=== PATIENT | female | born 1965 ===

== ENCOUNTER → 2023-10-15 11:04 | Outpatient (BNVA) | payer OTHER, SELFPAY | PROVIDERS: Visit Provider Physician Assistant ==

== ENCOUNTER 2023-11-07 15:09 | Emergency (ER) | payer OTHER, SELFPAY ==
--- NOTE | ~2023-11-07 | US_ITS ---
EXAMINATION: US ABDOMEN LIMITED CLINICAL INFORMATION: Right upper quadrant tenderness. COMPARISON: None available. TECHNIQUE: Real-time imaging of the right upper quadrant abdominal viscera. FINDINGS: GALLBLADDER: There are multiple echogenic shadowing gallstones with mild tenderness with ultrasound probe. Gallbladder wall thickness measures 0.27 cm. No pericholecystic fluid collection. COMMON BILE DUCT: Normal in caliber measuring 0.60 cm in diameter. US/US abdomen limited IMPRESSION: Cholelithiasis with borderline wall thickness and mild tenderness with ultrasound probe. Findings suspicious for cholecystitis
[2023-11-07 16:05] VITALS: BP 137/84; PULSE 70; RESP 16; O2SAT 98; BMI 59.5
--- NOTE | 2023-11-07 16:06 | ED.GENADULT ---
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 Patient states symptoms initially began 1 week ago. She thinks he may have been when she had been moving some of her furniture and cleaning her room. It has been waxing waning in intensity. She felt as though these symptoms worsen over the past 24 hours and therefore presents the emergency department for further evaluation. She denies any urinary symptoms. No history of kidney stones. It is worse with palpation and movement. She thinks he may have worsened with some food as she has been eating more pizza recently. She does endorse increased dyspepsia. She denies any nausea or vomiting. No fevers or chills. Of note, she had been told years ago that she had ?inflammation? of her gallbladder but does not recall any specifics. Related Data Home Medications Medication Instructions Recorded Confirmed clonazepam 1 mg tablet 1 mg PO DAILY 10/15/23 hydrochlorothiazide 25 mg tablet 25 mg PO DAILY 10/15/23 losartan 50 mg tablet 50 mg PO DAILY 10/15/23 Previous Rx's Medication Instructions Recorded methocarbamol 750 mg tablet 750 mg PO Q8H PRN muscle spasm #20 11/07/23 tabs Allergies Allergy/AdvReac Type Severity Reaction Status Date / Time No Known Allergies Allergy Verified 10/15/23 11:28 Review of Systems Constitutional: Constitutional: Denies chills and Denies fever(s) Eyes: Eyes: Denies other (No redness.) Cardiovascular: Cardiovascular: Denies chest pain, Denies palpitations, Denies dyspnea, Denies dyspnea on exertion and Denies orthopnea Respiratory: Respiratory: Denies cough, Denies dyspnea and Denies dyspnea on exertion Gastrointestinal: Gastrointestinal: Denies abdominal pain, Denies melena, Denies hematochezia, Denies diarrhea, Denies nausea and Denies vomiting Genitourinary: Genitourinary: Denies dysuria and Denies urinary urgency Musculoskeletal: Musculoskeletal: Denies back pain, Denies muscle weakness and Denies numbness Integumentary/Breasts: Skin/Breast: Denies rash Neurologic: Denies focal weakness and Denies numbness Psychiatric: Psychiatric: Denies depression Endocrine: Endocrine: Denies palpitations PMF Past Medical History Surgical History (Updated 10/15/23 @ 11:31 by Beti Brito [facility]) Hx of tubal ligation Family History Family History (Updated 10/15/23 @ 11:35 by Beti Brito [facility]) Mother Hypertension Ovarian cancer Father Congenital heart problem High cholesterol Daughter No problems noted. Daughter Obesity Daughter No problems noted. Son No problems noted. Social History Social History (Updated 10/15/23 @ 11:32 by Beti Brito [facility] [address]) Alcohol intake: never Patient Tobacco Use Status: Former Tobacco user Quit Date: 10yr ago Advance Directives: No Advance Directives Information Provided: No Physical Exam ED Vital Signs: Vital Signs - 24 hr 11/07/23 16:05 11/07/23 22:26 Temperature 97.7 F Pulse Rate 70 67 Respiratory Rate 16 17 Blood Pressure 137/84 115/57 L Pulse Oximetry 98 99 Oxygen Delivery Method Room Air Room Air BMI result Body Mass Index 59.5 Const General: cooperative, alert and awake Resp Effort & Inspection: normal respiratory effort Auscultation: clear to auscultation bilaterally Cardio Rate: regular rate Rhythm: regular rhythm GI Other: Patient is morbidly obese. Abdomen is diffusely soft. There is no epigastric tenderness. No right upper quadrant tenderness. No Patel sign. No peritoneal signs. No CVAT. Back/Spine/Pelvis Other: No obvious rashes noted to the back. No spinous, paraspinous or paravertebral tenderness noted. There is mild tenderness to the right mid back, mid scapular line. Skin Rashes: no rashes Psych Attitude: cooperative Course Course Course Narrative: This is a rapid medical exam: Additional HPI, ROS, PE not included below will be deferred to primary provider. Patient is a 58-year-old female presenting to the ED with complaint of RUQ abdominal pain for the past 5 days, worse last night. Denies nausea, vomiting, diarrhea, fevers. History of problems with her gallbladder in the past, has not had cholecystectomy. 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 Again reviewed ultrasound findings. Hensel text message to Dr. Payne. No emergent surgical intervention at this time. Given that the patient is hemodynamically stable, he will follow-up with the patient next week. This was communicated to the patient. In addition reviewed all discharge instructions including the importance of non-fat diet. In addition, patient also recalls that since she moved here recently from [place], the mattress that she is sleeping on at her daughter's house is not the most comfortable and feels as though this could be contributing. In addition, she has a history of arthritis in her back. Patient has been taking Tylenol and ibuprofen with minimal relief. Trial of Robaxin. Patient expresses understanding of discharge instructions and has no further questions at this time. Time: 23:37 Medical Decision Making Medical Decision Making MDM Narrative: 58-year-old woman with a history of hypertension, presents with right flank pain. History of gallbladder problems in the past. Suspect element of chronic gallbladder issue however at this time does not appear to be acute in nature. Patient is hemodynamically stable, afebrile, has not had any symptoms consistent with acute cholecystitis such as abdominal pain, nausea vomiting. There is no leukocytosis and no elevation in total bili. Urinalysis is unremarkable therefore not consistent with pyelonephritis. Symptoms easily reproducible with palpation at this time. Ultrasound reading suggestive of possible cholecystitis but does not fit with the clinical picture. Differential Diagnosis Differential Diagnoses: The differential diagnosis associated with the presentation includes Cholecystitis Muscular strain Dyspepsia Nephrolithiasis Pyelonephritis UTI Admission/Observation Consideration of admission/observation: Escalation of care including admission/observation considered Consideration for admission if clinically warranted. Lab Data [facility] Lab Attestation statement: I reviewed the patient's lab results. 11/07/23 16:56 11/07/23 16:56 Labs: Lab Results 11/07/23 11/07/23 Range/Units 16:56 22:28 WBC 7.1 (4.8-10.8) X10*3/uL RBC 4.72 (4.20-5.50) X10*6/uL Hgb 13.7 (12.0-16.0) g/dl Hct 42.0 (37.0-47.0) % MCV 89.0 (80.0-98.0) fL MCH 29.0 (27.0-33.0) pg MCHC 32.6 (31.0-35.0) g/dl RDW 12.0 (11.0-16.0) % Plt Count 254 (160-400) X10*3/uL MPV 10.5 (9.4-12.3) fL Immature Gran % (Auto) 0.3 (0.0-0.4) % Neut % (Auto) 53.9 (45-73) % Lymph % (Auto) 33.7 (20-40) % [place] % (Auto) 8.3 (2-11) % Eos % (Auto) 3.0 (0-4) % Baso % (Auto) 0.8 (0-2) % Lymph # (Auto) 2.4 (1.2-4.9) X10*3/uL [place] # (Auto) 0.6 (0.1-1.2) X10*3/uL Eos # (Auto) 0.2 (0.0-0.4) X10*3/uL Baso # (Auto) 0.1 (0.0-0.2) X10*3/uL Abs Immat Gran (auto) 0.02 (0.00-0.03) X10*3/uL Absolute Neuts (auto) 3.8 (2.0-8.3) x10*3/uL Absolute Nucleated RBC 0.000 (0.0-0.012) X10*3/uL Nucleated RBC % (auto) 0.0 (0.0-0.2) /100WBC Sodium 140 (135-145) mmol/L Potassium 5.0 (3.3-5.1) mmol/L Chloride 103 (96-108) mmol/L Carbon Dioxide 30 H (22-29) mmol/L Anion Gap 12 (12-20) BUN 12 (9-16) mg/dL Creatinine 0.85 (0.5-1.4) mg/dL Estim Creat Clear Calc 103.9 Estimated GFR > 60 Random Glucose 112 (60-115) mg/dL Calcium 10.5 H (8.4-10.2) mg/dL Total Bilirubin 0.4 (0.0-1.0) mg/dL AST 21 (5-31) U/L ALT 19 (0-31) U/L Alkaline Phosphatase 85 (39-117) U/L Total Protein 8.4 H (6.5-8.0) g/dL Albumin 4.1 (3.5-5.0) g/dL Urine Color Yellow Urine Appearance Clear Urine pH 6.5 (5.0-9.0) Ur Specific [place] 1.020 (1.005-1.025) Urine Protein Negative (Neg-Trace) mg/dL Urine Glucose (UA) Negative (Negative) mg/dL Urine Ketones Negative (Negative) mg/dL Urine Blood Negative (Negative) Urine Nitrite Negative (Negative) Ur Leukocyte Esterase Negative (Negative) Radiology Impression Discussion of test interpretation with radiology: I have reviewed the radiologist's reading. Radiologist Impression: [address] [address] Ultrasound Report Signed Patient: Tamara Paulino MR#: [id number] : 1965 Acct:[id number] Age/Sex: 58 / F ADM Date: 11/07/23 Loc: .ED Attending Dr: Ordering Physician: Sharon Yates NP Date of Service: 11/07/23 Procedure(s): US abdomen limited Accession Number(s): [id number] cc: Physician,Unknown ; Sharon Yates NP~ EXAMINATION: US ABDOMEN LIMITED CLINICAL INFORMATION: Right upper quadrant tenderness. COMPARISON: None available. TECHNIQUE: Real-time imaging of the right upper quadrant abdominal viscera. FINDINGS: GALLBLADDER: There are multiple echogenic shadowing gallstones with mild tenderness with ultrasound probe. Gallbladder wall thickness measures 0.27 cm. No pericholecystic fluid collection. COMMON BILE DUCT: Normal in caliber measuring 0.60 cm in diameter. US/US abdomen limited IMPRESSION: Cholelithiasis with borderline wall thickness and mild tenderness with ultrasound probe. Findings suspicious for cholecystitis Dictated By: Aristides Duran MD Signed By: <Electronically signed by Aristides Duran MD in OV> 11/07/23 1707 DD/ 1624 TD/TT: Bridge Toll Collector: [facility] [place] Independent Historian Clinical information obtained from an independent historian. History obtained from or confirmed by: Spouse Prescription Management I considered prescription management with: Pain Medication Chronic Conditions Patient?s care impacted by: Hypertension Discharge Plan Discharge Clinical Impression: Acute flank pain, Gallbladder attack Patient Disposition: Home, Self-Care Instructions: Biliary Colic (ED), Low Fat Diet (ED) Additional Instructions: Rest. Avoid strenuous activity. Avoid high fatty foods such as pizza. Follow-up with surgeon, Dr. Payne. Call to schedule appointment to be seen next week. Follow-up with your primary care provider. Call this week to schedule a follow-up appointment. Return to the emergency department if you have any worsening of symptoms, or any concerns. Watch for severe pain, fevers, or any other concern return immediately to the emergency department. Get well soon! Prescriptions: New methocarbamol 750 mg tablet 750 mg PO Q8H PRN (Reason: muscle spasm) Qty: 20 0RF No Action hydrochlorothiazide 25 mg tablet 25 mg PO DAILY clonazepam 1 mg tablet 1 mg PO DAILY losartan 50 mg tablet 50 mg PO DAILY Referrals: Dima Payne MD [Physician] - 1 week Print Language: [place]
[2023-11-07 17:00] LABS: MANUAL DIFF FLAG NO
[2023-11-07 17:01] LABS: Basophils Absolute Auto 0.1 X10*3/uL (0.0-0.2); Basophils Percent Auto 0.8 % (0-2); Eosinophils Absolute Auto 0.2 X10*3/uL (0.0-0.4); Hemoglobin 13.7 g/dl (12.0-16.0); Imm Gran Abs Auto 0.02 X10*3/uL (0.00-0.03); Imm Gran Pct Auto 0.3 % (0.0-0.4); Lymphocytes Absolute Auto 2.4 X10*3/uL (1.2-4.9); Lymphocytes Percent Auto 33.7 % (20-40); Mean Corpuscular HGB Conc 32.6 g/dl (31.0-35.0); Mean Platelet Volume 10.5 fL (9.4-12.3); Monocytes Absolute Auto 0.6 X10*3/uL (0.1-1.2); Monocytes Percent Auto 8.3 % (2-11); Neutrophils Absolute Auto 3.8 x10*3/uL (2.0-8.3); Neutrophils Percent Auto 53.9 % (45-73); Platelet Count 254 X10*3/uL (160-400); Red Blood Count 4.72 X10*6/uL (4.20-5.50); White Blood Count 7.1 X10*3/uL (4.8-10.8)
[2023-11-07 17:19] LABS: Alanine Aminotransferase 19 U/L (0-31); Albumin Level 4.1 g/dL (3.5-5.0); Alkaline Phosphatase 85 U/L (39-117); Anion Gap 12 (12-20); Aspartate Amino Transferase 21 U/L (5-31); Bilirubin Total 0.4 mg/dL (0.0-1.0); Blood Urea Nitrogen 12 mg/dL (9-16); Calcium 10.5 mg/dL (8.4-10.2); Carbon Dioxide 30 mmol/L (22-29); Chloride 103 mmol/L (96-108); Creatinine Clr Calc Pharmacy 103.9; Estimated Glomerular Filt Rate > 60; Glucose Random 112 mg/dL (60-115); Sodium 140 mmol/L (135-145); Total Protein 8.4 g/dL (6.5-8.0)
[2023-11-07 22:26] VITALS: BP 115/57; PULSE 67; RESP 17; TEMP 36.5; O2SAT 99
[2023-11-07 22:37] LABS: Appearance Urine Clear; Color Urine Yellow; Glucose Urine UA Negative (Negative); Leukocyte Esterase Urine Negative (Negative); Nitrite Urine Negative (Negative); PH 6.5 (5.0-9.0); Urine Blood Negative (Negative); Urine Ketones Negative (Negative); Urine Protein Negative (Neg-Trace)
== END 2023-11-08 00:15 | disposition home or self-care (01) ==
PROVIDERS: Registered Nurse Emergency; Emergency Provider Emergency Medicine; PCP Nurse Practitioner Family
DX: K81.0 Acute cholecystitis (principal); R10.9 Unspecified abdominal pain; I10 Essential (primary) hypertension; R10.11 Right upper quadrant pain
CPT/HCPCS: 36415; 76705; 80053; 81003; 85025; 99284